=== PATIENT | female | born 1960 | race Caucasian/White ===

== ENCOUNTER 2017-07-30 09:38 | Emergency (ER) | payer OTHER ==
[~2017-07-30] VITALS: Ht 170.2 cm; Wt 74.8 kg
[2017-07-30] MEDS ORDERED: IV NORMAL SALINE 1,000ML 1,000 ML IV ONE (10:15)
[2017-07-30] MEDS ORDERED: KETOROLAC 30 MG/ML VIAL. IV ONE (10:30)
[2017-07-30] MEDS ORDERED: ONDANSETRON PF 4 MG/2 ML VIAL. IV ONE (10:30)
[2017-07-30] MEDS ORDERED: IPRATRPIUM/ALBUTEROL 0.5/2.5MG 3 ML NEBU. NEB ONE (10:30)
[2017-07-30 10:40] LABS: BASO % 1 % (0-3); EOS % 0 % (0-3); HEMATOCRIT 49.3 % (36.0-47.0); HEMOGLOBIN 16.7 g/dL (12.0-15.5); LYMPH # 0.9 x10^3/uL (1.0-4.8); LYMPH % 23 % (24-48); MEAN CORPUSCULAR HEMOGLOBIN 30 pg (25-35); MEAN CORPUSCULAR HGB CONC 34 g/dL (31-37); MEAN CORPUSCULAR VOLUME 87 fL (79-100); MONO # 0.3 x10^3/uL (0.0-1.1); MONO % 8 % (0-9); NEUT # 2.7 x10^3uL (1.8-7.7); NEUT % 69 % (31-73); PLATELET COUNT 136 x10^3/uL (140-400); RED BLOOD COUNT 5.68 x10^6/uL (3.50-5.40); RED CELL DISTRIBUTION WIDTH 15.1 % (11.5-14.5); WHITE BLOOD COUNT 3.9 x10^3/uL (4.0-11.0)
--- NOTE | 2017-07-30 10:48 | RAD ---
Portable chest, 07/30/2017: History: Cough, shortness of breath, fever The heart size and pulmonary vascularity are normal. No pulmonary infiltrate is seen. There is no evidence of pleural fluid. IMPRESSION: No acute cardiopulmonary abnormality is detected.
[2017-07-30 10:53] LABS: AMORPHOUS SEDIMENT,UR PRESENT /HPF; BACTERIA,URINE FEW /HPF (0-FEW); BILIRUBIN,URINE NEG (NEG); CLARITY,URINE HAZY; COLOR,URINE AMBER; GLUCOSE,URINE NEG (NEG); NITRITE,URINE NEG (NEG); RBC,URINE 0 /HPF (0-2); SQUAMOUS EPITHELIAL CELL,UR OCC /LPF; UROBILINOGEN,URINE 4 mg/dL (0.2 mg/dL); WBC,URINE RARE /HPF (0-4)
[2017-07-30 10:57] LABS: INFLUENZA A PATIENT NEGATIVE (NEGATIVE); INFLUENZA B PATIENT POSITIVE (NEGATIVE)
[2017-07-30 11:03] LABS: LIPASE 122 U/L (73-393)
[2017-07-30 11:23] VITALS: BP 128/78
[2017-07-30] MEDS ORDERED: BENZ100C PO (11:38)
[2017-07-30] MEDS ORDERED: ALBU8.5H8 INH (11:38)
[2017-07-30] MEDS ORDERED: ONDA4TAB10 SL (11:38)
--- NOTE | 2017-07-30 11:38 | PHYS DOC ---
Past History Past Medical History: Other Past Surgical History: Appendectomy, Other Alcohol Use: None Drug Use: None Adult General Chief Complaint Chief Complaint: FLU SYMPTOM HPI HPI Patient is a 57 year old female who presents with illness. The patient reports 2 week history of cough productive of yellow sputum, subjective fevers, nausea & vomiting especially with coughing. She reports chest tightness & shortness of breath with coughing. She denies abdominal pain, diarrhea, dysuria, lower extremity pain/swelling. She has history of brain aneurysm requiring surgical repair. Current daily smoker. Review of Systems Review of Systems Constitutional: Reports fever Eyes: Denies change in visual acuity HENT: Reports nasal congestion and sore throat Respiratory: Reports cough and shortness of breath Cardiovascular: Reports chest pain, denies edema GI: Reports nausea and vomiting Denies abdominal pain, or diarrhea : Denies dysuria or hematuria Musculoskeletal: Denies back pain or joint pain Integument: Denies rash or skin lesions Neurologic: Denies headache, focal weakness or sensory changes All other systems were reviewed and found to be within normal limits, except as documented in this note. Current Medications Current Medications Current Medications Medications (Trade) Dose Ordered Sig/Meggan Start Time Stop Time Status Last Admin Dose Admin Albuterol/ Ipratropium (Duoneb) 3 ml 1X ONCE 07/30/17 10:30 07/30/17 10:31 DC 07/30/17 10:43 3 ML Ketorolac Tromethamine (Toradol) 30 mg 1X ONCE 07/30/17 10:30 07/30/17 10:31 DC 07/30/17 10:42 30 MG Ondansetron HCl (Zofran) 4 mg 1X ONCE 07/30/17 10:30 07/30/17 10:31 DC 07/30/17 10:40 4 MG Sodium Chloride 1,000 ml @ 1,000 mls/hr 1X ONCE 07/30/17 10:15 07/30/17 11:14 DC 07/30/17 10:39 1,000 MLS/HR Allergies Allergies Allergies Coded Allergies Type Severity Reaction Last Updated Verified No Known Drug Allergies 07/30/17 No Physical Exam Physical Exam Constitutional: Well developed, well nourished, no acute distress, non-toxic appearance. HENT: Normocephalic, atraumatic, bilateral external ears normal, oropharynx moist, no tonsillar enlargement or exudate, nose normal. Eyes: conjunctiva normal, no discharge. Neck: supple, no stridor. No meningismus Cardiovascular: RRR, no murmurs, no edema. Lungs & Thorax: LCTAB, frequent dry cough, no wheezing, no tachypnea or use of accessory muscles, no respiratory distress. Abdomen: soft, nontender, nondistended. Skin: Warm, dry, no erythema, no rash. Back: No tenderness. Extremities: No tenderness, no edema. No calf tenderness or swelling Neurologic: Alert and oriented X 3, no focal deficits noted. Psychologic: Affect normal, judgement normal, mood normal. Current Patient Data Vital Signs Vital Signs Date Time Temp Pulse Resp B/P (MAP) Pulse Ox O2 Delivery O2 Flow Rate FiO2 07/30/17 09:55 100.2 74 16 97 Room Air Lab Results Laboratory Tests Test 07/30/17 10:13 07/30/17 10:27 07/30/17 10:30 Urine Collection Type Unknown Urine Color Isabel Urine Clarity Hazy Urine pH 5.5 Urine Specific Edgar 1.025 Urine Protein 100 mg/dl (NEG-TRACE) Urine Glucose (UA) Neg mg/dL (NEG) Urine Ketones (Stick) Trace mg/dL (NEG) Urine Blood Neg (NEG) Urine Nitrite Neg (NEG) Urine Bilirubin Neg (NEG) Urine Urobilinogen Dipstick 4 mg/dL (0.2 mg/dL) Urine Leukocyte Esterase Neg (NEG) Urine RBC 0 /HPF (0-2) Urine WBC Rare /HPF (0-4) Urine Squamous Epithelial Cells Occ /LPF Urine Amorphous Sediment Present /HPF Urine Bacteria Few /HPF (0-FEW) Urine Mucus Mod /LPF White Blood Count 3.9 x10^3/uL (4.0-11.0) L Red Blood Count 5.68 x10^6/uL (3.50-5.40) H Hemoglobin 16.7 g/dL (12.0-15.5) H Hematocrit 49.3 % (36.0-47.0) H Mean Corpuscular Volume 87 fL (79-100) Mean Corpuscular Hemoglobin 30 pg (25-35) Mean Corpuscular Hemoglobin Concent 34 g/dL (31-37) Red Cell Distribution Width 15.1 % (11.5-14.5) H Platelet Count 136 x10^3/uL (140-400) L Neutrophils (%) (Auto) 69 % (31-73) Lymphocytes (%) (Auto) 23 % (24-48) L Monocytes (%) (Auto) 8 % (0-9) Eosinophils (%) (Auto) 0 % (0-3) Basophils (%) (Auto) 1 % (0-3) Neutrophils # (Auto) 2.7 x10^3uL (1.8-7.7) Lymphocytes # (Auto) 0.9 x10^3/uL (1.0-4.8) L Monocytes # (Auto) 0.3 x10^3/uL (0.0-1.1) Eosinophils # (Auto) 0.0 x10^3/uL (0.0-0.7) Basophils # (Auto) 0.0 x10^3/uL (0.0-0.2) Creatine Kinase 245 U/L (26-192) H Troponin I Quantitative 0.019 ng/mL (0-0.055) ZC-Csb-U-Type Natriuretic Peptide 40 pg/mL (0-124) Lipase 122 U/L (73-393) Influenza Type A (Rapid) Negative (NEGATIVE) Influenza Type B (Rapid) Positive (NEGATIVE) EKG EKG Interpreted by me: Normal sinus rhythm rate 76, no acute ST or T wave changes, normal intervals, no ectopy.[] Radiology/Procedures Radiology/Procedures PROCEDURE: CHEST AP ONLY Portable chest, 07/30/2017: History: Cough, shortness of breath, fever The heart size and pulmonary vascularity are normal. No pulmonary infiltrate is seen. There is no evidence of pleural fluid. IMPRESSION: No acute cardiopulmonary abnormality is detected. DICTATED AND SIGNED BY: SONG CEBALLOS MD DATE: 07/30/17 0845[] Course & Med Decision Making Course & Med Decision Making Pertinent Labs and Imaging studies reviewed. (See chart for details) The patient presents with illness. Elevated temperature but otherwise stable vitals. Gave IV fluids, Zofran, Toradol, DuoNeb. Obtained chest x-ray, EKG, labs. No evidence of infiltrate, tested positive for influenza B. Outside treatment window for Tamiflu. LFTs mildly elevated without focal abdominal pain , recommend recheck after flu symptoms resolve. Recommend supportive care with rest, hydration, Tylenol or ibuprofen for pain or fever, albuterol as needed for cough or wheezing, Tessalon Perles for cough, Zofran for nausea. Follow-up with primary care physician if not improving in 2-3 days. Return to the emergency department for severe shortness of breath or chest pain, uncontrolled vomiting, any otherwise worsening condition. [] Dragon Disclaimer Dragon Disclaimer This electronic medical record was generated, in whole or in part, using a voice recognition dictation system. Departure Departure: Impression: Primary Impression: Influenza B Disposition: HOME, SELF-CARE Condition: STABLE Referrals: PCP,NO (PCP) Patient Instructions: Influenza, Adult, [id number] Additional Instructions: You were seen in the emergency department today. You have influenza B. There is no specific treatment because of how long her symptoms lasted. Please rest, drink fluids to stay hydrated, take Tylenol or ibuprofen for pain or fever, use Tessalon Perles and albuterol inhaler for cough, Zofran for nausea. Follow-up with a primary care physician if not improving in 2-3 days. Return to the emergency department for severe shortness of breath, uncontrolled vomiting, any otherwise worsening condition. Scripts Benzonatate (TESSALON PERLE) 100 Mg Capsule 1 CAP PO TID, #21 CAP Prov: MONALISA PANG MD 07/30/17 Ondansetron (ZOFRAN ODT) 4 Mg Tab.rapdis 1 TAB SL Q8HRS, #10 TAB Prov: MONALISA PANG MD 07/30/17 Albuterol Sulfate (PROAIR HFA INHALER) 8.5 Gm Hfa.aer.ad 1 PUFF INH PRN Q6HRS Y for SHORTNESS OF BREATH, #1 INHALER 0 Refills Prov: MONALISA PANG MD 07/30/17 MONALISA PANG MD Jul 30, 2017 11:38
[2017-07-30 11:46] LABS: ALBUMIN/GLOBULIN RATIO 0.9 (1.0-1.7); CALCIUM 7.9 mg/dL (8.5-10.1); CREATININE 0.8 mg/dL (0.6-1.0); GFR 74.5; TOTAL BILIRUBIN 0.4 mg/dL (0.2-1.0); TOTAL PROTEIN 6.3 g/dL (6.4-8.2)
[2017-07-30 11:48] LABS: POTASSIUM 4.3 mmol/L (3.5-5.1)
--- NOTE | 2017-07-30 13:49 | EKG ---
[address] [address] Test Date: 2017-07-30 Test Time: 10:53:02 Pat Name: THEODORE RUBIN Department: Room: Gender: F Compliance Review Officer: NATHAN : 1960 Requested By: MONALISA PANG Order Number: [id number] Reading MD: James Wilcox Measurements Intervals [place] Rate: 76 P: 52 DE: 114 QRS: 5 QRSD: 82 T: 32 QT: 396 QTc: 450 Interpretive Statements SINUS RHYTHM QRS(T) CONTOUR ABNORMALITY CONSIDER INFERIOR MYOCARDIAL DAMAGE POSSIBLY ABNORMAL ECG RI6.01 No previous ECG available for comparison Electronically Signed On 08-01-2017 10:11:21 RECONCILER by James Wilcox
== END 2017-07-30 11:50 | disposition home or self-care (01) ==
LOC: ER 09:38
DX: J10.1 Influenza due to other identified influenza virus with other respiratory manifestations (principal)
CPT/HCPCS: 36415; 71045; 80053; 81001; 82550; 83690; 83880; 84484; 85025; 87804; 93005; 94640; 96361; 96374; 96375; 99285; J1885; J2405; J7620; J7030